=== PATIENT | male | born 1950 | race Caucasian/White ===

== ENCOUNTER → 2018-12-23 | Outpatient (REF) | payer MEDICARE, OTHER ==
[2018-12-23 16:39] LABS: BASO # 0.1 10^3/uL (0.0-0.2); BASO % 0.8 % (0.0-1.0); EOS # 0.3 10^3/uL (0.0-0.50); EOS % 2.7 % (0.0-3.0); HEMOGLOBIN 15.5 g/dl (13.5-17.5); LYMPH % 17.6 % (24.0-44.0); MEAN CORPUSCULAR HGB CONC 33.7 g/dl (32.0-36.5); MEAN CORPUSCULAR VOLUME 89.1 fl (80.0-96.0); MONO # 1.3 10^3/uL (0.0-0.8); MONO % 11.4 % (0.0-5.0); NEUTROPHILS # 7.4 10^3/uL (1.8-7.7); PLATELET COUNT, AUTOMATED 359 10^3/uL (150-450); RED BLOOD COUNT 5.16 10^6/uL (4.30-6.10); WHITE BLOOD COUNT 11.1 10^3/uL (4.0-10.0)
[2018-12-23 16:50] LABS: ALBUMIN 3.8 GM/DL (3.2-5.2); ALT/SGPT 39 U/L (12-78); BILIRUBIN,TOTAL 0.4 MG/DL (0.2-1.0); BLOOD UREA NITROGEN 16 MG/DL (7-18); CALCIUM LEVEL 8.9 MG/DL (8.8-10.2); CARBON DIOXIDE LEVEL 22 MEQ/L (21-32); CHLORIDE LEVEL 108 MEQ/L (98-107); CREATININE FOR GFR 0.94 MG/DL (0.70-1.30); GLOMERULAR FILTRATION RATE > 60.0 (>49); GLUCOSE, FASTING 103 MG/DL (70-100); POTASSIUM SERUM 4.2 MEQ/L (3.5-5.1); SODIUM LEVEL 139 MEQ/L (136-145); TOTAL PROTEIN 7.5 GM/DL (6.4-8.2)
[2018-12-23 18:43] LABS: MAGNESIUM LEVEL 2.2 MG/DL (1.8-2.4)
== END ==
LOC: M LAB REF 16:13
PROVIDERS: ATTEND Physician Assistant
DX: E11.9 Type 2 diabetes mellitus without complications (principal); M79.606 Pain in leg, unspecified

== ENCOUNTER 2021-11-02 08:19 | Emergency (ER) | payer MEDICARE, OTHER ==
[~2021-11-02] VITALS: Ht 182.9 cm; Wt 125.0 kg
[2021-11-02] MEDS ORDERED: ACETAMINOPHEN TAB 650MG DOSE (2X325MG) PO ONE (10:10)
[2021-11-02] MEDS ORDERED: CLEO300C2 PO (12:43)
[2021-11-02 12:51] VITALS: BP 119/70
== END 2021-11-02 12:56 | disposition home or self-care (01) ==
LOC: M ED 08:19
DX: K04.7 Periapical abscess without sinus (principal); E11.9 Type 2 diabetes mellitus without complications; I10 Essential (primary) hypertension; Z88.0 Allergy status to penicillin; Z79.2 Long term (current) use of antibiotics

== ENCOUNTER → 2022-02-20 | Outpatient (CLI) | payer MEDICARE, OTHER ==
[~2022-02-20] MED LIST: CLEO300C2 PO; PROHANCE 279.3MG/ML 15ML VIAL As Ordered ONE; PROHANCE 279.3MG/ML 5ML VIAL As Ordered ONE
== END ==
LOC: M RAD 10:01
PROVIDERS: ATTEND Psychiatry & Neurology Neurology
DX: G35 Multiple sclerosis (principal)
CPT/HCPCS: 70553; A9576

== ENCOUNTER 2023-10-26 09:01 | Emergency (ER) | payer MEDICARE, OTHER ==
[~2023-10-26] VITALS: Ht 182.9 cm; Wt 117.4 kg
[~2023-10-26 09:01] MED LIST changes: -PROHANCE 279.3MG/ML 15ML VIAL As Ordered ONE; -PROHANCE 279.3MG/ML 5ML VIAL As Ordered ONE
[2023-10-26] MEDS ORDERED: OMEP-173 (09:14)
[2023-10-26] MEDS ORDERED: METO1TAB7 (09:14)
[2023-10-26] MEDS ORDERED: INSU100I60 (09:14)
[2023-10-26] MEDS ORDERED: REPA140I2 (09:14)
[2023-10-26] MEDS ORDERED: VALS1TAB68 (09:14)
[2023-10-26] MEDS ORDERED: AMLO1TAB24 (09:14)
[2023-10-26] MEDS ORDERED: ELIQ5TAB (09:14)
[2023-10-26] MEDS ORDERED: TIRZ5PEN (09:14)
[2023-10-26 09:41] LABS: BASO # 0.1 10^3/uL (0.0-0.2); BASO % 0.6 % (0.0-1.0); EOS # 0.2 10^3/uL (0.0-0.5); EOS % 2.7 % (0.0-3.0); HEMATOCRIT 43.6 % (42.0-52.0); HEMOGLOBIN 14.9 g/dl (13.5-17.5); LYMPH # 1.7 10^3/uL (1.5-5.0); LYMPH % 20.8 % (24.0-44.0); MEAN CORPUSCULAR HEMOGLOBIN 30.8 pg (27.0-33.0); MEAN CORPUSCULAR HGB CONC 34.2 g/dl (32.0-36.5); MEAN CORPUSCULAR VOLUME 90.3 fl (80.0-96.0); MONO # 0.9 10^3/uL (0.0-0.8); MONO % 10.9 % (2.0-8.0); NEUTROPHILS # 5.2 10^3/uL (1.5-8.5); NEUTROPHILS % 64.6 % (36.0-66.0); PLATELET COUNT, AUTOMATED 250 10^3/uL (150-450); RED BLOOD COUNT 4.83 10^6/uL (4.30-6.10); WHITE BLOOD COUNT 8.1 10^3/uL (4.0-10.0)
[2023-10-26 10:01] LABS: INR 1.17; PARTIAL THROMBOPLASTIN TIME 32.1 SECONDS (24.8-34.2); PROTHROMBIN TIME 14.6 SECONDS (12.5-14.5)
[2023-10-26 10:11] LABS: BLOOD UREA NITROGEN 19 MG/DL (9-23); CALCIUM LEVEL 8.1 MG/DL (8.3-10.6); CARBON DIOXIDE LEVEL 27 MMOL/L (20-31); CHLORIDE LEVEL 110 MMOL/L (98-107); CREATININE FOR GFR 0.92 MG/DL (0.70-1.30); GLOMERULAR FILTRATION RATE > 60.0 (>42); GLUCOSE, FASTING 126 MG/DL (74-106); POTASSIUM SERUM 4.2 MMOL/L (3.5-5.1); SODIUM LEVEL 142 MMOL/L (136-145)
[2023-10-26 10:56] LABS: ALBUMIN 3.4 G/DL (3.2-5.2); ALKALINE PHOSPHATASE 72 U/L (46-116); ALT/SGPT 29 U/L (7.0-40); AST/SGOT 16 U/L (<34); BILIRUBIN,DIRECT 0.2 MG/DL (<0.4); BILIRUBIN,TOTAL 0.5 MG/DL (0.3-1.2); TOTAL PROTEIN 6.2 G/DL (5.7-8.2)
[2023-10-26 10:58] LABS: CPK CREATINE PHOSPHOKINASE 129 U/L (46-171)
[2023-10-26] MEDS ORDERED: CIPR500T39 PO (11:52)
[2023-10-26 12:00] VITALS: BP 136/80; TEMP 96.5; O2SAT 98
== END 2023-10-26 12:14 | disposition home or self-care (01) ==
LOC: M ED 09:01
DX: N39.0 Urinary tract infection, site not specified (principal); R31.9 Hematuria, unspecified; E11.9 Type 2 diabetes mellitus without complications; I10 Essential (primary) hypertension; E78.5 Hyperlipidemia, unspecified; K21.9 Gastro-esophageal reflux disease without esophagitis; Z88.0 Allergy status to penicillin; Z79.899 Other long term (current) drug therapy; Z79.4 Long term (current) use of insulin

== ENCOUNTER → 2024-01-10 | Outpatient (CLI) | payer MEDICARE, OTHER ==
[~2024-01-10] MED LIST changes: +AMLO1TAB24; +CIPR500T39 PO; +ELIQ5TAB; +INSU100I60; +METO1TAB7; +OMEP-173; +REPA140I2; +TIRZ5PEN; +VALS1TAB68
== END ==
LOC: M PLAIMG 06:31
PROVIDERS: ATTEND Psychiatry & Neurology Neurology
DX: G35 Multiple sclerosis (principal)

== ENCOUNTER 2025-01-10 09:45 | Emergency (ER) | payer MEDICARE, OTHER ==
[~2025-01-10] VITALS: Ht 182.9 cm; Wt 106.1 kg
[~2025-01-10 09:45] MED LIST changes: -AMLO1TAB24; +AMLO1TAB24 PO; -ELIQ5TAB; +ELIQ5TAB PO; -INSU100I60; +INSU100I60 SUBQ; -METO1TAB7; +METO1TAB7 PO; -OMEP-173; +OMEP-173 PO; -REPA140I2; +REPA140I2 SUBQ; -VALS1TAB68; +VALS1TAB68 PO
[2025-01-10] MEDS ORDERED: TAMS1CAP17 PO (10:18)
[2025-01-10] MEDS ORDERED: GABA-1172 PO (10:18)
[2025-01-10] MEDS ORDERED: INSU100I24 SUBQ (10:18)
[2025-01-10] MEDS ORDERED: MAG-400T7 PO (10:18)
[2025-01-10 10:28] LABS: BASO # 0.0 10^3/uL (0.0-0.2); BASO % 0.2 % (0.0-1.0); EOS # 0.0 10^3/uL (0.0-0.5); EOS % 0.2 % (0.0-3.0); LYMPH # 1.1 10^3/uL (1.5-5.0); LYMPH % 5.9 % (24.0-44.0); MONO # 1.6 10^3/uL (0.0-0.8); MONO % 8.7 % (2.0-8.0); NEUTROPHILS # 15.6 10^3/uL (1.5-8.5); NEUTROPHILS % 84.5 % (36.0-66.0); PLATELET COUNT, AUTOMATED 262 10^3/uL (150-450)
[2025-01-10] MEDS: NS (Normal Saline) 0.9% 1,000 ML IV ONE (10:57)
[2025-01-10 11:05] LABS: ALT/SGPT 21.0 U/L (7.0-40); AST/SGOT 18.0 U/L (<34); CALCIUM LEVEL 8.8 MG/DL (8.3-10.6); CARBON DIOXIDE LEVEL 27.0 MMOL/L (20-31); CHLORIDE LEVEL 103.0 MMOL/L (98-107); CREATININE FOR GFR 1.04 MG/DL (0.70-1.30); GLOMERULAR FILTRATION RATE 76.3 (>42); MAGNESIUM LEVEL 1.5 MG/DL (1.8-2.4); POTASSIUM SERUM 3.7 MMOL/L (3.5-5.1); SODIUM LEVEL 141.0 MMOL/L (136-145)
[2025-01-10] MEDS: ACETAMINOPHEN *IV* 1,000 MG in IV 1 EA IV ONE (11:54)
[2025-01-10] MEDS: MAG SULF 1GM/100ML (MAG RUN) 1 GM in IV 1 EA IV ONE ×2 (12:20→18:41)
[2025-01-10] MEDS ORDERED: HOME MED LIST COMPLETE! XX SCH (12:55)
[2025-01-10] MEDS: KETOROLAC 30 MG/ML 1 ML VIAL IV ONE (13:22)
[2025-01-10] MEDS: GASTROGRAFIN SOLUTION 30ML PO SCH (14:50)
[2025-01-10] MEDS ORDERED: ISOVUE-370 76% 100 ML VIAL As Ordered ONE (15:24)
[2025-01-10 16:25] LABS: KETONE, URINE AUTO RFX TRACE mg/dL (NEGATIVE); LEUKOCYTE ESTERASE UR AUTO RFX NEGATIVE (NEGATIVE); MUCUS, URINE RFX SMALL (NEGATIVE); NITRITE, URINE AUTO RFX NEGATIVE (NEGATIVE); RBC, URINE AUTO RFX 103 /HPF (0-3); SQUAM EPITHELIAL CELL UR AURFX 1 /HPF (0-6); WBC, URINE AUTO RFX 4 /HPF (0-3)
[2025-01-10] MEDS: AZITHROMYCIN 250 MG TABLET PO ONE (18:41)
[2025-01-10] MEDS ORDERED: AZIT500T5 PO (18:43)
[2025-01-10] MEDS: IBUPROFEN 600 MG TAB PO ONE (19:09)
[2025-01-10 19:45] VITALS: BP 121/60; TEMP 97.8; O2SAT 97
== END 2025-01-10 19:45 | disposition home or self-care (01) ==
LOC: M ED 09:45
DX: A04.5 Campylobacter enteritis (principal); E83.42 Hypomagnesemia; I10 Essential (primary) hypertension; E78.5 Hyperlipidemia, unspecified; K21.9 Gastro-esophageal reflux disease without esophagitis; N40.0 Benign prostatic hyperplasia without lower urinary tract symptoms; Z88.0 Allergy status to penicillin; Z79.01 Long term (current) use of anticoagulants; Z79.2 Long term (current) use of antibiotics; Z79.4 Long term (current) use of insulin; Z79.899 Other long term (current) drug therapy
CPT/HCPCS: 70450; 74177; 80048; 80076; 81001; 83605; 83690; 83735; 85025; 87040; 87486; 87507; 87581; 87633; 87798; 96361; 96365; 96367; 96375; 99285; J0131; J1885; J3475; Q9963; Q9967